=== PATIENT | female | born 1980 | race Caucasian/White ===

== ENCOUNTER → 2018-11-12 | Outpatient (CLI) | payer BC ==
--- NOTE | 2018-11-13 09:57 | MM ---
Reason for exam: screening (asymptomatic). Last mammogram was performed 14 years and 8 months ago. History: Family history of breast cancer in aunt. Physical Findings: Nurse did not find any significant physical abnormalities on exam. MG Screening Mammo w CAD Bilateral CC and MLO view(s) were taken. No prior studies available for comparison. The breast tissue is heterogeneously dense. This may lower the sensitivity of mammography. No suspicious abnormality. ASSESSMENT: Negative, BI-RAD 1 RECOMMENDATION: Routine screening mammogram of both breasts in 1 year.
== END | disposition home or self-care (01) ==
LOC: RADMAMWWP 09:43
PROVIDERS: ATTEND Family Medicine
DX: Z12.31 Encounter for screening mammogram for malignant neoplasm of breast (principal)
CPT/HCPCS: 77067

== ENCOUNTER → 2018-11-17 | Outpatient (CLI) | payer BC ==
--- NOTE | 2018-11-17 10:40 | US ---
EXAMINATION TYPE: US gallbladder DATE OF EXAM: 11/17/2018 COMPARISON: None CLINICAL HISTORY: R10.11 RUQ Pain. RUQ pain, NPO EXAM MEASUREMENTS: Liver Length: 12.7 cm Gallbladder Wall: 0.1 cm CHD: 0.3 cm Right Kidney: 9.3 x 5.0 x 5.1 cm Pancreas: Appears lightly heterogenous in appearance Liver: Appears hyperechoic, most commonly related to hepatic steatosis with possible area of focal s paring seen adjacent to GB in a typical location for focal fatty sparing. Gallbladder: wnl Evidence for sonographic Morales's sign: neg CBD: Obscured by overlying bowel gas CHD: wnl Right Kidney: wnl IMPRESSION: 1. Hyperechoic hepatic echotexture most commonly relates to hepatic steatosis overall appearing mild in degree. Correlate with liver function test results. Probable focal fatty sparing is also seen near the gallbladder fossa. 2. No sonographic evidence of cholelithiasis nor acute cholecystitis. 3. Slight heterogeneity in the pancreatic parenchyma may relate to pancreatitis. Correlate with serum amylase and lipase.
== END | disposition home or self-care (01) ==
LOC: RADUSWWP 10:07
PROVIDERS: ATTEND Family Medicine
DX: R10.11 Right upper quadrant pain (principal)
CPT/HCPCS: 76705

== ENCOUNTER → 2018-11-18 | Outpatient (CLI) | payer BC ==
[2018-11-18 16:04] LABS: Amylase 41 U/L (23-121); Lipase 37 U/L (14-63)
== END | disposition home or self-care (01) ==
LOC: LABWHC1 08:21
PROVIDERS: ATTEND Family Medicine
DX: K85.90 Acute pancreatitis without necrosis or infection, unspecified (principal)
CPT/HCPCS: 36415; 82150; 83690

== ENCOUNTER → 2019-07-06 | Outpatient (CLI) | payer BC ==
--- NOTE | 2019-07-06 12:00 | XR ---
EXAMINATION TYPE: XR chest 2V DATE OF EXAM: 07/06/2019 COMPARISON: NONE HISTORY: Cough for 2 years. TECHNIQUE: Frontal and lateral views of the chest are obtained. FINDINGS: There is no focal air space opacity, pleural effusion, or pneumothorax seen. The cardiac silhouette size is within normal limits. The osseous structures are intact. IMPRESSION: No suspicious acute pulmonary process.
--- NOTE | 2019-07-22 12:16 | EM ---
EVENT MONITOR 14 DAY EVENT MONITOR: Multiple recordings were noted, most of these were with sharp chest pains and chest tightness. Almost all tracings provided reveal sinus rhythm. one with isolated PVCs. No other significant arrhythmia noted. FINAL IMPRESSION: Unremarkable 14 day event monitor with predominant sinus rhythm and one isolated PVC. No correlation of any arrhythmia when patient felt some chest tightness, pressure, nausea, dizziness or lightheadedness. MMODL / IJN: [id number] /
== END | disposition home or self-care (01) ==
LOC: RADECHMAIN 11:40
PROVIDERS: ATTEND Family Medicine
DX: R05 Cough (principal); R00.2 Palpitations
CPT/HCPCS: 71046; 93270

== ENCOUNTER → 2020-02-08 | Outpatient (CLI) | payer BC ==
--- NOTE | 2020-02-08 09:19 | US ---
EXAMINATION TYPE: US abdomen complete DATE OF EXAM: 02/08/2020 COMPARISON: US 11/17/2018 CLINICAL HISTORY: K76.0 NON ALCOHOLIC FATTY LIVER. EXAM MEASUREMENTS: Liver Length: 12.3 cm Gallbladder Wall: 0.2 cm CBD: 0.3 cm Spleen: 8.5 cm Right Kidney: 10.3 x 4.6 x 4.6 cm Left Kidney: 10.8 x 5.0 x 5.6 cm Pancreas: wnl as visualized, distal portion obscured by bowel gas Liver: Coarse, heterogeneous echotexture. Hypoechoic area measuring 2.0 x 2.1 x 1.3 cm Gallbladder: wnl Evidence for sonographic Morales's sign: No CBD: wnl as visualized Spleen: wnl Right Kidney: No hydronephrosis or masses seen Left Kidney: No hydronephrosis or masses seen Upper IVC: wnl Abd Aorta: wnl The liver is coarse. IMPRESSION: 1. Mild fatty infiltration liver. 2. Some focal fatty sparing may be adjacent to the gallbladder bed fossa. This could be followed by u ltr[facility]. Follow-up exam in 3-6 months.
--- NOTE | 2020-02-09 10:38 | MM ---
Reason for exam: screening (asymptomatic). Last mammogram was performed 1 year and 3 months ago. History: Family history of breast cancer in aunt. Physical Findings: A clinical breast exam by your physician is recommended on an annual basis and results should be correlated with mammographic findings. MG 3D Screening Mammo W/Cad Bilateral CC and MLO view(s) were taken. Prior study comparison: November 12, 2018, bilateral MG screening mammo w CAD. March 22, 2004, bilateral diagnostic mammogram. The breast tissue is heterogeneously dense. This may lower the sensitivity of mammography. There are benign appearing round calcifications bilaterally. There is no discrete abnormality. ASSESSMENT: Benign, BI-RAD 2 RECOMMENDATION: Routine screening mammogram of both breasts in 1 year.
== END | disposition home or self-care (01) ==
LOC: RADUSWWP 08:38
PROVIDERS: ATTEND Family Medicine
DX: Z12.31 Encounter for screening mammogram for malignant neoplasm of breast (principal); K76.0 Fatty (change of) liver, not elsewhere classified; K82.8 Other specified diseases of gallbladder
CPT/HCPCS: 76700; 77063; 77067

== ENCOUNTER → 2020-10-21 | Outpatient (CLI) | payer BC ==
--- NOTE | 2020-10-21 16:16 | CT ---
EXAMINATION TYPE: CT abdomen pelvis wo/w con DATE OF EXAM: 10/21/2020 COMPARISON: 12/22/2010 HISTORY: Epigastric and right lower pelvis (groin area) CT DLP: 983.1 mGycm Automated exposure control for dose reduction was used. CONTRAST: Performed without and with IV Contrast, patient injected with 100 mL of Isovue 300. Noncontrasted images show no renal calculus. The lung bases are clear. There is no pleural effusion. There is no sign of pericardial effusion. Heart appears slightly enlarged. Liver and spleen appear in tact. The bile ducts are not dilated. There is large stomach. Gallbladder appears normal. There is no pancreatic mass. There is no adrenal mass. Kidneys show satisfactory contrast opacification. There is no hydronephrosi s. Ureters are not dilated. Delayed images show normal renal excretion. There is no retroperitoneal a denopathy. Bladder distends smoothly. There is no inguinal hernia. There is 3 cm right ovarian cyst. Uterus is r etroverted. There is no free fluid in the pelvis. There is normal oral contrast opacification of the small bowel. There is no evidence of bowel obstruction. There is no mesenteric edema. There is no asc ites or free air. There are surgical clips in the right lower quadrant. Appendix is not seen. The lumbar vertebra have normal spacing and alignment. Posterior elements are intact. There is no com pression fracture. The bony pelvis is intact. Hip joints are intact. There is no hip dysplasia. IMPRESSION: Right colon Surgery. No sign of acute abdomen and pelvis. Right ovarian cyst is slightly larger than old exam. Large fluid-filled stomach could relate to some degree of gastroparesis.
== END | disposition home or self-care (01) ==
LOC: RADCTMAIN 12:53
PROVIDERS: ATTEND Internal Medicine Gastroenterology
DX: N83.201 Unspecified ovarian cyst, right side (principal)
CPT/HCPCS: 74178; Q9967

== ENCOUNTER → 2020-11-03 | Outpatient (CLI) | payer BC ==
[2020-11-04 02:13] LABS: ALT 18 U/L (8-44); AST 22 U/L (13-35); Albumin/Globulin Ratio 1.52 (1.60-3.17); Alkaline Phosphatase 67 U/L (41-126); Bilirubin, Conjugated <0.20 mg/dL (0.20-0.40); Chol/HDL Ratio 5.77; Cholesterol 254 mg/dL (0-200); Globulin 2.9 g/dL (1.6-3.3); Total Bilirubin 0.5 mg/dL (0.2-1.2); Total Protein 7.3 g/dL (6.2-8.2)
== END | disposition home or self-care (01) ==
LOC: LABWHC1 10:40
PROVIDERS: ATTEND Nuclear Medicine Nuclear Cardiology
DX: I10 Essential (primary) hypertension (principal); E78.2 Mixed hyperlipidemia
CPT/HCPCS: 36415; 80061; 80076

== ENCOUNTER → 2020-12-21 | Outpatient (CLI) | payer BC ==
--- NOTE | 2020-12-21 12:22 | NM ---
EXAMINATION TYPE: NM gastric emptying static DATE OF EXAM: 12/21/2020 COMPARISON: NONE HISTORY: R11.0 nausea Following administration of 2.0 mCi Tc 99m Sulfur Colloid with 4 oz eggs, 2 oz water, projection imag es of the abdomen were obtained 10 minutes post ingestion. Patient Emptying Values 1 Hour 15 % 2 Hours 52 % 3 Hours 73 % 4 Hours 83 % Gastroesophageal reflux: None IMPRESSION: Gastric emptying: Normal gastric emptying Gastroesophageal reflux: No evidence for reflux. Gastric emptying normal percentage values: 30 minutes: <70% of retention (> 30% emptying) suggests abnormally fast emptying. 60 minutes: <90% retention (>10% emptying) is normal; less than 30% retention (>70% emptying) suggest s abnormally rapid emptying. 90 minutes: <65% retention (> 35% emptying) is normal. 120 minutes: <60% retention (> 40% emptying) is normal. 180 minutes: <30% retention (> 70% emptying) is normal. Gastric emptying T-1/2: The normal range is 60-105 minutes Liquid only: Normal range is 10-45 minutes. Liquid only-children: At 60 minutes, normal range is 44-58 % . Liquid only-infants: At 60 minutes, normal range is 32-64 %. Additional references: Gastric Emptying Scintigraphy [email or web address]://[email or web address]
== END | disposition home or self-care (01) ==
LOC: RADNMMAIN 06:56
PROVIDERS: ATTEND Internal Medicine Gastroenterology
DX: R11.0 Nausea (principal)
CPT/HCPCS: 78264; A9541

== ENCOUNTER → 2021-01-30 | Outpatient (CLI) | payer BC ==
--- NOTE | 2021-01-30 10:17 | NM ---
EXAMINATION TYPE: NM hepatobiliary w EF DATE OF EXAM: 01/30/2021 COMPARISON: NONE HISTORY: 40-year-old female R1 0.13, epigastric pain TECHNIQUE: After the intravenous administration of 5.1 mCi Tc 99m Mebrofenin hepatobiliary scintigrap hy is performed. Immediate images post injection. FINDINGS: There is satisfactory initial accumulation of tracer by the liver. The gallbladder is visualized wit hin 2 minutes. The small bowel activity is noted within 18 minutes. At one hour 8 ounces of oral en sure plus is given to mimic CCK and gallbladder ejection fraction is calculated at 54 %, in the sigifredo l range. Therefore there is no scintigraphic evidence of cystic or common bile duct obstruction to s uggest acute cholecystitis or gallbladder dyskinesia. IMPRESSION: Exam is within normal limits.
== END | disposition home or self-care (01) ==
LOC: RADNMMAIN 06:54
PROVIDERS: ATTEND Internal Medicine Gastroenterology
DX: R10.13 Epigastric pain (principal)
CPT/HCPCS: 78226; A9537

== ENCOUNTER → 2021-03-30 | Outpatient (CLI) | payer BC ==
--- NOTE | 2021-03-31 13:00 | MM ---
Reason for exam: screening (asymptomatic). Last mammogram was performed 1 year and 2 months ago. History: Family history of breast cancer in aunt. Took hormonal contraceptives for 5 years. Physical Findings: A clinical breast exam by your physician is recommended on an annual basis and results should be correlated with mammographic findings. MG 3D Screening Mammo W/Cad Bilateral CC and MLO view(s) were taken. Prior study comparison: February 08, 2020, bilateral MG 3d screening mammo w/cad. November 12, 2018, bilateral MG screening mammo w CAD. The breast tissue is heterogeneously dense. This may lower the sensitivity of mammography. There is no discrete abnormality. No significant changes when compared with prior studies. ASSESSMENT: Negative, BI-RAD 1 RECOMMENDATION: Routine screening mammogram of both breasts in 1 year.
== END | disposition home or self-care (01) ==
LOC: RADMAMWWP 08:34
PROVIDERS: ATTEND Obstetrics & Gynecology
DX: Z12.31 Encounter for screening mammogram for malignant neoplasm of breast (principal)
CPT/HCPCS: 77063; 77067

== ENCOUNTER → 2021-09-06 | Outpatient (CLI) | payer BC ==
--- NOTE | 2021-09-07 03:39 | MR ---
EXAMINATION TYPE: MR brain wo/w con DATE OF EXAM: 09/06/2021 COMPARISON: None HISTORY: Migraines, dizziness. CONTRAST: Standard multiplanar, multisequence MRI departmental protocol images were obtained without contrast a nd with 7 mL intravenous Gadavist gadolinium contrast. Ventricles have normal size. There is no mass effect or midline shift. There is no sign of intracrani al hemorrhage. Diffusion images show no evidence of an acute infarct. Shultz and white matter structure s have normal signal pattern. There is no evidence of cerebral edema. Brainstem is intact. Corpus callosum appears normal. Sella turcica is normal. Orbits appear normal. There is mild mucosal thickening in the anterior ethmoid air cells. IMPRESSION: Negative MR scan of the brain. Normal exam
== END | disposition home or self-care (01) ==
LOC: RADMRIMAIN 20:22
PROVIDERS: ATTEND Family Medicine
DX: G43.B0 Ophthalmoplegic migraine, not intractable (principal)
CPT/HCPCS: 70553; A9585

== ENCOUNTER → 2022-04-19 | Outpatient (CLI) | payer BC ==
--- NOTE | 2022-04-20 07:42 | MM ---
Reason for Exam: Screening (asymptomatic). Last mammogram was performed 1 year(s) and 1 month(s) ago. Patient History: Menarche at age 8. First Full-Term at age 19. Patient used Hormonal Contraceptives for 5 years. Maternal aunt had breast cancer, age 43. Risk Values: Dory 5 year model risk: 0.7%. NCI Lifetime model risk: 9.6%. Prior Study Comparison: 11/12/2018 Bilateral Screening Mammogram, [facility]. 02/08/2020 Bilateral Screening Mammogram, [facility]. 03/30/2021 Bilateral Screening Mammogram, [facility]. Tissue Density: There are scattered fibroglandular densities. Findings: Analyzed By CAD. There is no suspicious group of microcalcifications or new suspicious mass in either breast. Overall Assessment: Benign, BI-RAD 2 Management: Screening Mammogram of both breasts in 1 year. A clinical breast exam by your physician is recommended on an annual basis and results should be correlated with mammographic findings. Electronically signed and approved by: Aiden Croft M.D. Radiologis
== END | disposition home or self-care (01) ==
LOC: RADMAMWWP 14:51
PROVIDERS: ATTEND Obstetrics & Gynecology
DX: Z12.31 Encounter for screening mammogram for malignant neoplasm of breast (principal); Z80.3 Family history of malignant neoplasm of breast
CPT/HCPCS: 77063; 77067

== ENCOUNTER → 2023-01-31 | Outpatient (CLI) | payer BC ==
[2023-01-31 15:34] LABS: HCG,Quantitative Serum 4.4 mIU/mL (0.0-6.0)
[2023-01-31 16:06] LABS: Follicle Stimulating Hormone 65.6 mIU/mL; Prolactin 10.5 ng/mL (2.800-29.200)
== END | disposition home or self-care (01) ==
LOC: LABWHC1 09:46
PROVIDERS: ATTEND Obstetrics & Gynecology
DX: Z13.29 Encounter for screening for other suspected endocrine disorder (principal); N91.2 Amenorrhea, unspecified
CPT/HCPCS: 36415; 82670; 83001; 84146; 84443; 84702

== ENCOUNTER → 2023-05-30 | Outpatient (CLI) | payer BC ==
--- NOTE | 2023-06-05 12:52 | MM ---
Reason for Exam: Screening (asymptomatic). Last mammogram was performed 1 year(s) and 1 month(s) ago. Patient History: Menarche at age 8. First Full-Term at age 19. Postmenopausal. Patient used Hormonal Contraceptives for 5 years. Maternal aunt had breast cancer, age 43. Last menstrual period: Risk Values: Dory 5 year model risk: 0.8%. NCI Lifetime model risk: 9.5%. Prior Study Comparison: 02/08/2020 Bilateral Screening Mammogram, [facility]. 03/30/2021 Bilateral Screening Mammogram, [facility]. 04/19/2022 Bilateral MG 3D screening mammo w/cad, [facility]. Tissue Density: There are scattered fibroglandular densities. Findings: Analyzed By CAD. There is no suspicious group of microcalcifications or new suspicious mass. Benign-appearing calcifications bilaterally. Overall Assessment: Benign, BI-RAD 2 Management: Screening Mammogram of both breasts in [address] [facility] will attempt to contact patient to return for supplemental views and ultrasound if indicated. Patient should continue monthly self-breast exams. A clinical breast exam by your physician is recommended on an annual basis. This exam should not preclude additional follow-up of suspicious palpable abnormalities. Note on Dory scores and lifetime risk: 1. A Dory score greater than 3% is considered moderate risk. If this is the case, consider specialist referral to assess eligibility for a risk reducing agent. 2. If overall lifetime risk for the development of breast cancer is 20% or higher, the patient may qualify for future screening with alternating mammogram and breast MRI. Electronically signed and approved by: Patric Cabrera DO
== END | disposition home or self-care (01) ==
LOC: RADMAMWWP 13:27
PROVIDERS: ATTEND Family Medicine
DX: Z12.31 Encounter for screening mammogram for malignant neoplasm of breast (principal); Z78.0 Asymptomatic menopausal state; Z80.3 Family history of malignant neoplasm of breast
CPT/HCPCS: 77063; 77067

== ENCOUNTER → 2023-11-25 | Outpatient (CLI) | payer OTHER ==
--- NOTE | 2023-11-25 08:28 | CT ---
EXAMINATION TYPE: CT abdomen pelvis wo con CT DLP: 567.1 mGycm, Automated exposure control for dose reduction was used. DATE OF EXAM: 11/25/2023 8:19 AM COMPARISON: CT abdomen pelvis most recent from 10/21/2020 CLINICAL INDICATION:Female, 42 years old with history of R10.9 UNSPECIFIED ABDOMINAL PAIN; left flank pain TECHNIQUE: Axial CT abdomen pelvis wo con;Sagittal and coronal reformats were created on a separate workstation. Contrast used: mL of , (none if empty) Oral contrast used: without Oral Contrast (none if empty) FINDINGS: LOWER CHEST: Unremarkable ABDOMEN LIVER: Diffusely hypoattenuating parenchyma. GALLBLADDER AND BILE DUCTS: Unremarkable. PANCREAS: Unremarkable. SPLEEN: All splenule present. ADRENAL GLANDS: Unremarkable. KIDNEYS AND URETERS: No evidence of hydronephrosis or renal calculus. The ureters are unremarkable. PELVIS BLADDER: Unremarkable REPRODUCTIVE: Unremarkable. ABDOMEN & PELVIS STOMACH AND BOWEL: No evidence of bowel obstruction. PERITONEUM/RETROPERITONEUM: No evidence of pneumoperitoneum or free fluid. Surgical clips in the righ t lower quadrant. VASCULATURE: Mild atherosclerotic calcifications are present throughout the abdominal aorta and its b ranches. No evidence of aortic aneurysm. MUSCULOSKELETAL: No acute osseous abnormalities LYMPH NODES: No gross evidence for lymphadenopathy. SOFT TISSUE/ABDOMINAL WALL: Unremarkable IMPRESSION: No evidence for obstructive uropathy or diverticulitis. No left lower quadrant process to explain the patient's pain.
== END | disposition home or self-care (01) ==
LOC: RADCTMAIN 07:50
PROVIDERS: ATTEND Family Medicine
DX: R10.9 Unspecified abdominal pain (principal)
CPT/HCPCS: 74176